=== PATIENT | male | born 1950 | race Two or more races ===

== ENCOUNTER 2020-12-13 15:02 | Outpatient (AMBR) | payer MEDICARE, SELFPAY ==
--- NOTE | 2020-12-13 15:15 | PT.OIERPT ---
PT OP Initial Eval Patient Information Visit Reasons: RIGHT RING FINGER Medical Diagnosis: Z47.89 Treatment Dx #1: R ring finger pain Start of Care: 12/13/20 Date of Onset: 11/21/20 Initial Assessment Subjective Pt is 70 yr old male s/p trigger finger release of fourth digit of R hand. He reports low pain level and that he is able to do HH chores at home with low pain. He reports that he can't make a full fist on R hand with that finger and is R hand dominant. PMH: DM, HTN, smoker Pt goal: to be able to do HH chores well without limitations of R hand. 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 Pt has good ROM of MCP and DIP joints but PIP is slightly limited. There is no pain today during the evaluation and power and recovery superintendent strength is slightly limited. Pt would like to continue at home with gripper that he buys and stretches that were taught to him today to improve digit flexion. No skilled PT needed at this time as he is functional with HH chores without pain. Short Term and [facility] Goals Eval and D/C Treatment Plan Eval and D/C Certification Dates: 12/13/20 to 03/15/21 Office Procedures PT Procedures PT Date of Service: 12/13/20 OP PT Eval Mod Complex 30 minutes: Yes
== END 2020-12-21 23:59 | disposition home or self-care (01) ==
PROVIDERS: PCP Internal Medicine; Referring Provider Internal Medicine; Visit Provider Orthopaedic Surgery
DX: M79.644 Pain in right finger(s) (principal); E11.9 Type 2 diabetes mellitus without complications; I10 Essential (primary) hypertension; F17.200 Nicotine dependence, unspecified, uncomplicated
CPT/HCPCS: 97162

== ENCOUNTER → 2024-09-01 | Outpatient (CLI) | payer MEDICARE, SELFPAY ==
[2024-09-01 08:42] LABS: Glucose Estimated Average 157 mg/dL (80-131); Hemoglobin A1C 7.1 % Hgb (4.8-6.0)
[2024-09-01 08:52] LABS: Alanine Aminotransferase 23 U/L (10-49); Albumin, Serum 4.7 gm/dL (3.4-4.8); Albumin/Globulin Ratio 1.8 (1.2-2.2); Alkaline Phosphatase 58 U/L (46-116); Anion Gap 7 (7-16); Aspartate Amino Transferase 16 U/L (0-34); BUN/Creatinine Ratio 21 Ratio (12-20); Blood Urea Nitrogen 25 mg/dL (9-23); Carbon Dioxide 28.8 mMol/L (20.0-31.0); Cardiac Risk Estimate 3.7 RATIO (4.0-6.7); Chloride 103 mMol/L (98-107); Cholesterol 103 mg/dL (132-200); Creatinine (Component) 1.2 mg/dL (0.6-1.3); Globulin 2.6 gm/dL (2.3-3.5); Glucose 133 mg/dL (74-106); HDL Cholesterol 28 mg/dL (40-60); LDL Cholesterol,Calculated 45 mg/dL (0-130); Osmolality,Calculated 283 (275-295); Potassium 4.8 mMol/L (3.4-5.1); Sodium 139 mMol/L (136-145); Total Protein 7.3 gm/dL (5.7-8.2); Triglycerides 149 mg/dL (30-150); eGFR > 60 See Note
[2024-09-01 09:25] LABS: Creatinine MALB Rnd Ur 132 mg/dL (30-125); Microalbumin Creat Ratio 542 mg/gCrea (<30); Microalbumin, Random Urine 715 mg/L (0-300)
== END | disposition home or self-care (01) ==
PROVIDERS: PCP Internal Medicine; Referring Provider Internal Medicine; Visit Provider Internal Medicine
DX: E11.9 Type 2 diabetes mellitus without complications (principal); I10 Essential (primary) hypertension; E78.5 Hyperlipidemia, unspecified
CPT/HCPCS: 36415; 80053; 80061; 82043; 82570; 83036

== ENCOUNTER → 2024-12-31 | Outpatient (CLI) | payer MEDICARE, SELFPAY ==
[2024-12-31 08:38] LABS: Glucose Estimated Average 166 mg/dL (80-131); Hemoglobin A1C 7.4 % Hgb (4.8-6.0)
[2024-12-31 08:55] LABS: Alanine Aminotransferase 20 U/L (10-49); Albumin, Serum 4.3 gm/dL (3.4-4.8); Albumin/Globulin Ratio 1.6 (1.2-2.2); Alkaline Phosphatase 59 U/L (46-116); Anion Gap 8 (7-16); Aspartate Amino Transferase 19 U/L (0-34); BUN/Creatinine Ratio 24 Ratio (12-20); Bilirubin,Total 1.1 mg/dL (0.3-1.2); Blood Urea Nitrogen 24 mg/dL (9-23); Calcium 9.6 mg/dL (8.3-10.6); Calcium (Corrected) 9.6 mg/dL (8.5-10.1); Carbon Dioxide 26.4 mMol/L (20.0-31.0); Cardiac Risk Estimate 3.1 RATIO (4.0-6.7); Chloride 102 mMol/L (98-107); Cholesterol 98 mg/dL (132-200); Globulin 2.7 gm/dL (2.3-3.5); Glucose 139 mg/dL (74-106); HDL Cholesterol 32 mg/dL (40-60); LDL Cholesterol,Calculated 47 mg/dL (0-130); Osmolality,Calculated 277 (275-295); Potassium 4.2 mMol/L (3.4-5.1); Sodium 136 mMol/L (136-145); Triglycerides 96 mg/dL (30-150); eGFR > 60 See Note
[2024-12-31 09:03] LABS: Creatinine MALB Rnd Ur 85 mg/dL (30-125); Microalbumin Creat Ratio 155 mg/gCrea (<30); Microalbumin, Random Urine 132 mg/L (0-300)
== END | disposition home or self-care (01) ==
LOC: COPL 07:22
PROVIDERS: PCP Internal Medicine; Referring Provider Internal Medicine; Visit Provider Internal Medicine
DX: E11.9 Type 2 diabetes mellitus without complications (principal); I10 Essential (primary) hypertension; E78.5 Hyperlipidemia, unspecified
CPT/HCPCS: 36415; 80053; 80061; 82043; 82570; 83036

== ENCOUNTER → 2025-05-26 | Outpatient (CLI) | payer MEDICARE, SELFPAY ==
[2025-05-26 08:02] LABS: Collection Type, Urine Clean Catch
[2025-05-26 08:37] LABS: Basophils # (Auto) 0.1 Thou/mm3 (0.0-0.2); Basophils % (Auto) 1 % (0-2.5); Eosinophils # (Auto) 0.3 Thou/mm3 (0.0-0.5); Eosinophils % (Auto) 4 % (0-10); Hematocrit 48.5 % (41.0-53.0); Hemoglobin 16.3 g/dL (13.5-16.0); Immature Granulocytes Auto 0.03 Thou/mm3 (0.00-0.00); Lymphocytes # (Auto) 1.8 Thou/mm3 (1.0-4.8); Lymphocytes % (Auto) 26 % (10-50); Mean Corpuscular HGB Conc 33.6 g/dl (31.0-37.0); Mean Corpuscular Hemoglobin 31.8 pg (25.0-35.0); Mean Corpuscular Volume 95 fL (80-100); Monocytes # (Auto) 0.6 Thou/mm3 (0.0-0.8); Monocytes % (Auto) 9 % (0-12); Neutrophils # (Auto) 4.3 Thou/mm3 (1.8-7.7); Neutrophils % (Auto) 60 % (37-80); Nucleated Red Blood Cell # 0.00 Thou/mm3 (0.00-0.00); Nucleated Red Blood Cell % 0 /100 WBC (0); Platelet Count 171 Thou/mm3 (140-440); RDW Standard Deviation 45.6 fL (35.1-43.9); Red Blood Count 5.13 Miln/mm3 (4.50-5.90); White Blood Count 7.1 Thou/mm3 (3.8-10.6)
[2025-05-26 09:08] LABS: Vitamin B12 > 2000 pg/mL (211-911); Vitamin D 25 Hydroxy Total 41.2 ng/mL (7.3-40.2)
[2025-05-26 09:08] LABS: Creatinine MALB Rnd Ur 86 mg/dL (30-125); Microalbumin Creat Ratio 205 mg/gCrea (<30); Microalbumin, Random Urine 176 mg/L (0-300)
[2025-05-26 09:23] LABS: Bilirubin,Urine Negative (Negative); Blood,Urine Negative (Negative); Clarity,Urine Clear (Clear/Hazy); Color,Urine Yellow (Lt Yel-Yel); Glucose, Urine 4+ (Negative); Ketones,Urine Negative (Negative); Leukocyte Esterase,Urine Negative (Negative); Nitrite,Urine Negative (Negative); PH,Urine 6.0 (5.0-7.0); Protein,Urine Trace (Neg - Trace); RBC,Urine 5 /hpf (0-3); Specific Gravity,Urine 1.026 (1.001-1.035); Squamous Epithelial Cell,Urine < 1 /hpf (0-5); Urobilinogen,Urine Negative mg/dL (0.0-1.0); WBC,Urine 1 /hpf (0-5)
[2025-05-26 10:10] LABS: Alanine Aminotransferase 17 U/L (10-49); Albumin, Serum 4.3 gm/dL (3.4-4.8); Albumin/Globulin Ratio 2.0 (1.2-2.2); Alkaline Phosphatase 58 U/L (46-116); Anion Gap 10 (7-16); Aspartate Amino Transferase 16 U/L (0-34); BUN/Creatinine Ratio 23 Ratio (12-20); Bilirubin,Total 1.2 mg/dL (0.3-1.2); Blood Urea Nitrogen 21 mg/dL (9-23); Calcium 10.0 mg/dL (8.3-10.6); Calcium (Corrected) 10.0 mg/dL (8.5-10.1); Carbon Dioxide 26.7 mMol/L (20.0-31.0); Cardiac Risk Estimate 3.3 RATIO (4.0-6.7); Chloride 103 mMol/L (98-107); Cholesterol 99 mg/dL (132-200); Creatinine (Component) 0.9 mg/dL (0.6-1.3); Globulin 2.1 gm/dL (2.3-3.5); Glucose 132 mg/dL (74-106); HDL Cholesterol 30 mg/dL (40-60); Osmolality,Calculated 284 (275-295); Potassium 4.5 mMol/L (3.4-5.1); Sodium 140 mMol/L (136-145); Total Protein 6.4 gm/dL (5.7-8.2); eGFR > 60 See Note
[2025-05-26 10:15] LABS: LDL Cholesterol,Calculated 44 mg/dL (0-130); Triglycerides 125 mg/dL (30-150)
== END | disposition home or self-care (01) ==
LOC: COPL 07:27
PROVIDERS: PCP Internal Medicine; Referring Provider Internal Medicine; Visit Provider Internal Medicine
DX: E11.9 Type 2 diabetes mellitus without complications (principal); I10 Essential (primary) hypertension; E78.5 Hyperlipidemia, unspecified
CPT/HCPCS: 36415; 80053; 80061; 81001; 82043; 82306; 82570; 82607; 85025

== ENCOUNTER 2025-06-10 05:45 | Day surgery (SDC) | payer MEDICARE, SELFPAY ==
--- NOTE | 2025-06-09 06:51 | EKG_ITS ---
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
[2025-06-09 07:48] VITALS: BMI 32.9
[2025-06-09 09:00] LABS: Basophils # (Auto) 0.1 Thou/mm3 (0.0-0.2); Basophils % (Auto) 1 % (0-2.5); Eosinophils # (Auto) 0.3 Thou/mm3 (0.0-0.5); Eosinophils % (Auto) 3 % (0-10); Hematocrit 48.3 % (41.0-53.0); Hemoglobin 16.2 g/dL (13.5-16.0); Immature Granulocytes Auto 0.02 Thou/mm3 (0.00-0.00); Lymphocytes # (Auto) 1.6 Thou/mm3 (1.0-4.8); Lymphocytes % (Auto) 19 % (10-50); Mean Corpuscular HGB Conc 33.5 g/dl (31.0-37.0); Mean Corpuscular Hemoglobin 32.2 pg (25.0-35.0); Mean Corpuscular Volume 96 fL (80-100); Monocytes # (Auto) 0.7 Thou/mm3 (0.0-0.8); Monocytes % (Auto) 9 % (0-12); Neutrophils # (Auto) 5.8 Thou/mm3 (1.8-7.7); Neutrophils % (Auto) 68 % (37-80); Nucleated Red Blood Cell # 0.00 Thou/mm3 (0.00-0.00); Nucleated Red Blood Cell % 0 /100 WBC (0); Platelet Count 162 Thou/mm3 (140-440); RDW Standard Deviation 46.9 fL (35.1-43.9); Red Blood Count 5.03 Miln/mm3 (4.50-5.90); White Blood Count 8.5 Thou/mm3 (3.8-10.6)
[2025-06-09 09:08] LABS: INR 1.1 (0.9-1.3); Partial Thromboplastin Time 28.8 Seconds (22.0-36.0); Prothrombin Time 11.5 Seconds (9.0-12.2)
[2025-06-09 09:18] LABS: Alanine Aminotransferase 18 U/L (10-49); Albumin, Serum 4.6 gm/dL (3.4-4.8); Albumin/Globulin Ratio 1.9 (1.2-2.2); Alkaline Phosphatase 55 U/L (46-116); Anion Gap 9 (7-16); Aspartate Amino Transferase 22 U/L (0-34); BUN/Creatinine Ratio 18 Ratio (12-20); Bilirubin,Total 0.9 mg/dL (0.3-1.2); Blood Urea Nitrogen 18 mg/dL (9-23); Calcium 10.4 mg/dL (8.3-10.6); Calcium (Corrected) 10.4 mg/dL (8.5-10.1); Carbon Dioxide 27.6 mMol/L (20.0-31.0); Chloride 101 mMol/L (98-107); Creatinine (Component) 1.0 mg/dL (0.6-1.3); Estimated Creatinine Clearance 76.0 mL/min (>60); Globulin 2.4 gm/dL (2.3-3.5); Glucose 148 mg/dL (74-106); Osmolality,Calculated 280 (275-295); Potassium 4.2 mMol/L (3.4-5.1); Sodium 138 mMol/L (136-145); Total Protein 7.0 gm/dL (5.7-8.2); eGFR > 60 See Note
--- NOTE | 2025-06-09 14:26 | SUR.PREOP ---
Cardiac records reviewed with Dr Hampton.
[2025-06-10] VITALS (11 sets, daily range): BP systolic 100–126; BP diastolic 47–78; PULSE 55–74; RESP 14–18; TEMP 36.1–36.4; O2SAT 95–100; BMI 32.8
--- NOTE | 2025-06-10 09:50 | SUR.PHASEI ---
0950: pt received from OR via [facility]. received report from Dr. Ruby and Bhargav RN. pt sleeping at this time. no s/s of resp. distress or discomfort. no s/s of pain or discomfort. dressing to bilateral lower extremity clean, dry and intact. positive CMS: positive pulse and cap refill less than 3 seconds.
[2025-06-10] MEDS: fentaNYL CIT INJ 50 mCg/ML AMP 2ML 25 MCG IVP (10:10)
--- NOTE | 2025-06-10 10:20 | SUR.PHASEII ---
1020: positive CMS: able to wiggle bilateral toes, cap refill less than 3 seconds and positive pulse
--- NOTE | 2025-06-10 10:20 | SUR.PHASEI ---
1020: pt awake but drifts back to sleep.
--- NOTE | 2025-06-10 10:30 | SUR.PHASEII ---
1030: able to drink water with ice without any difficulty.
--- NOTE | 2025-06-10 10:34 | PD.SUROPNT ---
Date of Procedure 06/10/25 Pre Op Diagnosis Symptomatic varicose veins both lower extremities Post Op Diagnosis Same as pre-op diagnosis Procedure Varicose vein excisions bilateral lower extremities through 35 incisions on the left leg and 23 incisions on the right leg Findings All marked varicose veins were successfully removed or disrupted Procedure Description The patient standing in the preop area all varicose veins to be removed were carefully marked with a sharpie pen. The patient was then brought to the operating room and general anesthesia was induced. A timeout was performed. The procedure was performed by making a skin rodolfo to the marked areas with a #11 blade then bluntly enlarging the incision with a mosquito clamp and sequentially excising the veins. When all marked veins were successfully removed or disrupted then hemostasis was obtained, the wound was cleaned, dried and the incisions were reapproximated with half-inch Steri-Strips. The leg was then sterilely dressed with gauze Kerlix and an Justin wrap. Patient woke well from anesthesia was moved to recovery in stable condition Anesthesia other (Laryngeal mask anesthesia) Pathology / specimen Other (Bilateral lower extremity varicose veins) Estimated Blood Loss 150 Condition Stable Disposition PACU Surgeon Ross Martin MD Surgical Staff Operation Date: 06/10/25 07:30 Case Staff Anesthesiologist: Alpesh Ruby RN First Assistant: Sheree Yepez
--- NOTE | 2025-06-10 10:55 | SUR.PHASEII ---
1055: when patient got up after changing to his clothes, noted large amount of blood coming out from left foot. unwrap the dressing and put a pressure on the left foot were blood coming out.
--- NOTE | 2025-06-10 10:58 | SUR.PHASEII ---
1058: Called Dr. Martin and he placed gauze to the area were blood coming out and cover with coband. placed pillow to left foot for elevation. per Dr. Martin wait for 15 minutes and re-evaluate the bleeding and redress if no bleeding.
--- NOTE | 2025-06-10 11:18 | SUR.PHASEII ---
1118: reevaluate the bleeding at this time. no bleeding noted. CMS positive: positive pulse, able to wiggle toes and cap refill less than 3 seconds.
--- NOTE | 2025-06-10 11:25 | SUR.PHASEII ---
1125: redress the left lower extremity, tolerated well. waiting for Dr. Martin to see patient before discharge
--- NOTE | 2025-06-10 11:45 | SUR.PHASEII ---
1145: Dr. Martin at bedside given instructions to patient and family, to see him at his office on Saturday for dressing change, daughter and patient verbalizes understanding.
--- NOTE | 2025-06-10 11:55 | SUR.PHASEII ---
1155: pt discharge to home via wheelchair. discharge instructions given to daughter and pt, verbalizes understanding. all belongings brought given back to patient. pt alert and oriented. no s/s of resp. distress or discomfort. denies any pain or discomfort. bilateral lower extremity clean, dry and intact. positive CMS: positive pulse, able to wiggles toes and cap refill less than 3 seconds.
== END 2025-06-10 11:55 | disposition home or self-care (01) ==
PROVIDERS: Anesthesiology; PCP Internal Medicine; Referring Provider Surgery Vascular Surgery; Visit Provider Surgery Vascular Surgery
PROC: (CPT 36475; principal; 2025-06-10 07:30)
DX: I83.813 Varicose veins of bilateral lower extremities with pain (principal); Z01.810 Encounter for preprocedural cardiovascular examination
CPT/HCPCS: 37766; 36415; 80053; 85025; 85610; 85730; 93005; A4217; A4649; J0131; J0690; J0694; J1100; J1171; J2250; J2371; J2405; J2704; J3010; J3490; J7050